=== PATIENT | male | born 1955 | race Caucasian/White ===

== ENCOUNTER 2017-02-26 11:54 | Emergency (ER) | payer OTHER ==
[2017-02-26 12:20] VITALS: BP 149/78
--- NOTE | 2017-02-26 12:44 | UC ---
Upper Extremity HPI - HPI Summary HPI Summary: right ring/middle finger injury today, pinched between a saw horse.steel saw horse and very heavy and crushed the fingers. [ End ] - History of Current Complaint Chief Complaint: UCUpperExtremity Stated Complaint: LEFT HAND INJURY Time Seen by Provider: 02/26/17 12:39 Onset/Duration: Sudden Onset Severity Initially: Moderate Character: Sharp Aggravating Factor(s): Movement Alleviating Factor(s): Nothing, Rest - Allergies/Home Medications Allergies/Adverse Reactions: Allergies Allergy/AdvReac Type Severity Reaction Status Date / Time No Known Allergies Allergy Verified 02/26/17 12:20 Home Medications: Home Medications Atorvastatin* [Lipitor*] 20 mg PO 1700 02/26/17 [History Confirmed 02/26/17] Enalapril TAB* [Vasotec TAB*] 20 mg PO DAILY 02/26/17 [History Confirmed ] Insulin GLARGINE(*) [Lantus(*)] 60 units SUBCUT ONCE 02/26/17 [History Confirmed 02/26/17] Levothyroxine TAB* [Synthroid TAB*] 20 mcg PO DAILY 02/26/17 [History Confirmed 02/26/17] Omeprazole CAP* [Prilosec CAP* 20 MG] 20 mg PO DAILY 02/26/17 [History Confirmed 02/26/17] glipiZIDE TAB* [Glucotrol TAB*] 5 mg PO DAILY 02/26/17 [History Confirmed ] metFORMIN* [Glucophage 1000 MG TAB *] 1,000 mg PO BID 02/26/17 [History Confirmed 02/26/17] PMH/Surg Hx/FS Hx/Imm Hx Previously Healthy: Yes Endocrine History: Diabetes, Dyslipidemia - Surgical History Surgical History: Yes Surgery Procedure, Year, and Place: hernia. left thumb. diverticulits. cataracts. Rotor cuff surgery - Family History Known Family History: Positive: None - Social History Occupation: Employed Full-time Lives: With Family Alcohol Use: Rare Substance Use Type: None Smoking Status (MU): Never Smoked Tobacco Review of Systems Musculoskeletal: Other: - finger pain All Other Systems Reviewed And Are Negative: Yes Physical Exam Triage Information Reviewed: Yes Appearance: Well-Appearing, Well-Nourished Vital Signs: Initial Vital Signs Temp 97.8 F 02/26/17 12:14 Pulse 67 02/26/17 12:14 Resp 14 02/26/17 12:14 BP 149/78 02/26/17 12:14 Pulse Ox 99 02/26/17 12:14 Vital Signs Reviewed: Yes Eye Exam: Normal ENT Exam: Normal Neck exam: Normal Neck: Positive: 1 Respiratory Exam: Normal Cardiovascular Exam: Normal Musculoskeletal Exam: Normal Musculoskeletal: Positive: Strength Intact, ROM Intact, No Edema, Other: - left ring finger and middle finger with tenderness to palpation, proximal 1/3 of finger nail with dark blood under the nail bed. otherwise cap refill < 3 sec, rest of finger ok. no proximal MCP tenderness and FROM. no hand pain otherwise. right hand normal. no wrist pain and FROM . Neurological Exam: Normal Psychological Exam: Normal Skin Exam: Normal Upper Extremity Course/Dx - Differential Dx/Diagnosis Differential Diagnosis/HQI/PQRI: Fracture (Closed), Strain, Sprain Provider Diagnoses: Crush injury to left middle and ring fingers, no fracture Discharge - Discharge Plan Condition: Good Disposition: HOME Patient Education Materials: Crush Injury (ED)
--- NOTE | 2017-02-26 13:17 | RAD ---
Indication: Crush injury to the LEFT third and fourth digits distally. Comparison: No relevant prior exams available on the [facility] for comparison. Technique: AP, lateral, and oblique views of the LEFT third and fourth fingers. Report: Negative for fracture or malalignment at the third or fourth fingers. Osteoarthritis most prominent at the proximal and distal interphalangeal joints mild to moderate in severity. Mild soft tissue swelling most prominent along the radial margin of the third finger from the level of the proximal interphalangeal joint through the tip. No subcutaneous emphysema or conspicuous foreign body evident. IMPRESSION: 1. Soft tissue swelling without evidence for LEFT third or fourth finger fracture or articular malalignment. 2. Osteoarthritis.
--- NOTE | 2017-02-26 13:17 | RAD ---
Indication: Crush injury to the LEFT third and fourth digits distally. Comparison: No relevant prior exams available on the [facility] for comparison. Technique: AP, lateral, and oblique views of the LEFT third and fourth fingers. Report: Negative for fracture or malalignment at the third or fourth fingers. Osteoarthritis most prominent at the proximal and distal interphalangeal joints mild to moderate in severity. Mild soft tissue swelling most prominent along the radial margin of the third finger from the level of the proximal interphalangeal joint through the tip. No subcutaneous emphysema or conspicuous foreign body evident. IMPRESSION: 1. Soft tissue swelling without evidence for LEFT third or fourth finger fracture or articular malalignment. 2. Osteoarthritis.
== END 2017-02-26 13:39 | disposition home or self-care (01) ==
LOC: UCCORT 11:54
DX: S67.193A Crushing injury of left middle finger, initial encounter (principal); S67.195A Crushing injury of left ring finger, initial encounter; W23.0XXA Caught, crushed, jammed, or pinched between moving objects, initial encounter; Y93.9 Activity, unspecified; Y92.9 Unspecified place or not applicable; E11.9 Type 2 diabetes mellitus without complications; E78.5 Hyperlipidemia, unspecified
CPT/HCPCS: 73140; 99211; G0463

== ENCOUNTER 2021-08-17 16:00 | Inpatient (IN) ==
[~2021-08-17 16:00] MED LIST: Rocuronium 50 mg VIAL 10 mg/ml 5 ml VIAL (50 mg) ONE; Succinylcholine 200 mg VIAL 20 mg/ml 10 ml VIAL (200 mg) ONE
[2021-08-17] MEDS ORDERED: Albuterol/Ipratropium NEB.SOL (2.5/0.5 MG) 3 ML NEB.SOLN INH PRN (16:41)
[2021-08-17 16:59] LABS: ABS Lymphocytes 0.4 10^3/ul (1.0-4.8); ABS Monocytes 0.4 10^3/ul (0-0.8); ABS Neutrophils 6.1 10^3/ul (1.5-7.7); Eosinophil % 0.7 %; Hematocrit 42 % (42-52); Hemoglobin 13.9 g/dL (14.0-18.0); Lymphocyte % 5.3 %; Mean Corpuscular HGB Conc 33 g/dL (31-36); Mean Corpuscular Hemoglobin 32 pg (27-31); Mean Corpuscular Volume 95 fL (80-94); Mean Platelet Volume 7.9 fL (7.4-10.4); Nucleated Red Blood Cells % 0.1; Platelet Count 146 10^3/uL (150-450); Red Cell Distribution Width 15 % (10-15); White Blood Count 6.9 10^3/uL (3.5-10.8)
[2021-08-17] MEDS ORDERED: Remdesivir 100 mg Vial 200 MG in NS 0.9% 250 ml 210 ML IV ONE (17:05)
[2021-08-17 17:08] LABS: Magnesium 1.5 mg/dL (1.9-2.7); Phosphorus 2.5 mg/dL (2.5-5.0)
[2021-08-17] MEDS ORDERED: Magnesium Sulf 4 GM/100 ML IV 4,000 MG/100 ML BAG IVPB ONE (17:36)
[2021-08-17] MEDS: methylPREDNISolone SOD 40 mg/ml 1 ml VIAL IV SCH (18:15)
[2021-08-17] MEDS: Furosemide 20 mg/2 ml IV VIAL IV SLOW PU ONE ×2 (18:15→18:33)
[2021-08-17] MEDS ORDERED: Furosemide 20 mg/2 ml IV VIAL IV SLOW PU ONE (18:19)
[2021-08-17] MEDS ORDERED: Furosemide 20 mg/2 ml IV VIAL ONE (18:19)
[2021-08-17] MEDS: Heparin 5000 UNITS/ML 1 mL VIAL SUBCUT SCH (19:31)
[2021-08-18] MEDS: methylPREDNISolone SOD 40 mg/ml 1 ml VIAL IV SCH ×3 (02:26→17:47)
[2021-08-18] MEDS ORDERED: Albuterol HFA INHALER 8 gm MDI INH PRN (03:38)
[2021-08-18 03:50] LABS: ABS Lymphocytes 0.5 10^3/ul (1.0-4.8); ABS Monocytes 0.3 10^3/ul (0-0.8); Hematocrit 39 % (42-52); Hemoglobin 12.8 g/dL (14.0-18.0); Lymphocyte % 10.8 %; Mean Corpuscular HGB Conc 33 g/dL (31-36); Mean Corpuscular Hemoglobin 31 pg (27-31); Mean Corpuscular Volume 95 fL (80-94); Mean Platelet Volume 7.7 fL (7.4-10.4); Platelet Count 146 10^3/uL (150-450); Red Blood Count 4.07 10^6 /uL (4.18-5.48); Red Cell Distribution Width 16 % (10-15); White Blood Count 4.8 10^3/uL (3.5-10.8)
[2021-08-18 03:59] LABS: INR 1.25 (0.86-1.15)
[2021-08-18 04:07] LABS: Albumin 3.4 g/dL (3.2-5.2); Albumin/Globulin Ratio 1.1 (1-3); Calcium 8.6 mg/dL (8.6-10.3); Globulin 3.1 g/dL (2-4); Magnesium 2.1 mg/dL (1.9-2.7); Potassium 4.5 mmol/L (3.5-5.0); Total Bilirubin 0.8 mg/dL (0.2-1.0); Total Protein 6.5 g/dL (6.4-8.9); eGFR CKD-EPI 79.7 (>60)
[2021-08-18] MEDS: Azithromycin 500 mg/250 ml NS 500 MG/250 ML BAG IVPB SCH (05:50)
[2021-08-18] MEDS ORDERED: Furosemide 40 mg/4 ml IV VIAL IV SLOW PU ONE ×2 (05:58→10:00)
[2021-08-18] MEDS: Mometasone/Formoter 200/5 MDI INH SCH ×2 (07:51→17:48)
[2021-08-18] MEDS: OFEV 150 MG PO SCH ×3 (08:55→18:40)
[2021-08-18] MEDS: Aspirin EC 81 mg TAB.EC (enteric coated) PO SCH (08:56)
[2021-08-18] MEDS: cefTRIAXone 1 gm/50 mL NS BAG 1 GM/50 ML BAG IVPB SCH (08:56)
[2021-08-18] MEDS: Heparin 5000 UNITS/ML 1 mL VIAL SUBCUT SCH ×2 (08:56→20:38)
[2021-08-18] MEDS ORDERED: Insulin GLARGINE 100 un/ml 10 ml VIAL SUBCUT SCH (09:00)
[2021-08-18] MEDS ORDERED: Dextrose 50% Syringe 50 ml 25 GM/50 ML SYRINGE IV PUSH PRN (17:27)
[2021-08-18] MEDS: Insulin GLARGINE 100 un/ml 10 ml VIAL SUBCUT SCH (20:38)
[2021-08-18] MEDS: Remdesivir 100 mg Vial 100 MG in NS 0.9% 250 ml 230 ML IV SCH (21:23)
[2021-08-19] MEDS: methylPREDNISolone SOD 40 mg/ml 1 ml VIAL IV SCH ×3 (02:44→17:37)
[2021-08-19 05:04] LABS: ABS Lymphocytes 0.7 10^3/ul (1.0-4.8); ABS Monocytes 0.5 10^3/ul (0-0.8); ABS Neutrophils 6.8 10^3/ul (1.5-7.7); Eosinophil % 0.1 %; Hematocrit 40 % (42-52); Hemoglobin 13.3 g/dL (14.0-18.0); Lymphocyte % 9.2 %; Mean Corpuscular HGB Conc 33 g/dL (31-36); Mean Corpuscular Hemoglobin 32 pg (27-31); Mean Corpuscular Volume 95 fL (80-94); Mean Platelet Volume 7.9 fL (7.4-10.4); Nucleated Red Blood Cells % 0.1; Platelet Count 186 10^3/uL (150-450); Red Blood Count 4.22 10^6 /uL (4.18-5.48); Red Cell Distribution Width 16 % (10-15); White Blood Count 8.1 10^3/uL (3.5-10.8)
[2021-08-19 05:10] LABS: INR 1.26 (0.86-1.15)
[2021-08-19 05:25] LABS: Albumin 3.5 g/dL (3.2-5.2); Albumin/Globulin Ratio 1.1 (1-3); Calcium 8.7 mg/dL (8.6-10.3); Globulin 3.2 g/dL (2-4); Potassium 4.2 mmol/L (3.5-5.0); Total Bilirubin 0.7 mg/dL (0.2-1.0); Total Protein 6.7 g/dL (6.4-8.9); eGFR CKD-EPI 80.6 (>60)
[2021-08-19] MEDS: Azithromycin 500 mg/250 ml NS 500 MG/250 ML BAG IVPB SCH (06:18)
[2021-08-19] MEDS ORDERED: Perflutren Lipid Microsphere 3 ML VIAL ONE (07:42)
[2021-08-19] MEDS: Mometasone/Formoter 200/5 MDI INH SCH ×2 (08:05→21:04)
[2021-08-19] MEDS: Heparin 5000 UNITS/ML 1 mL VIAL SUBCUT SCH ×2 (09:29→20:43)
[2021-08-19] MEDS: Insulin GLARGINE 100 un/ml 10 ml VIAL SUBCUT SCH ×2 (09:29→20:42)
[2021-08-19] MEDS: Aspirin EC 81 mg TAB.EC (enteric coated) PO SCH (09:29)
[2021-08-19] MEDS: OFEV 150 MG PO SCH ×2 (09:31→17:37)
[2021-08-19] MEDS: cefTRIAXone 1 gm/50 mL NS BAG 1 GM/50 ML BAG IVPB SCH (09:58)
[2021-08-19] MEDS ORDERED: Furosemide 40 mg/4 ml IV VIAL IV ONE (11:30)
[2021-08-19] MEDS: Remdesivir 100 mg Vial 100 MG in NS 0.9% 250 ml 230 ML IV SCH (21:20)
[2021-08-20] MEDS: methylPREDNISolone SOD 40 mg/ml 1 ml VIAL IV SCH ×3 (02:11→17:47)
[2021-08-20 04:38] LABS: ABS Basophils 0.1 10^3/ul (0-0.2); ABS Lymphocytes 0.6 10^3/ul (1.0-4.8); ABS Monocytes 0.4 10^3/ul (0-0.8); ABS Neutrophils 8.9 10^3/ul (1.5-7.7); Hematocrit 39 % (42-52); Hemoglobin 13.1 g/dL (14.0-18.0); Lymphocyte % 6.1 %; Mean Corpuscular HGB Conc 33 g/dL (31-36); Mean Corpuscular Hemoglobin 32 pg (27-31); Mean Corpuscular Volume 94 fL (80-94); Mean Platelet Volume 7.8 fL (7.4-10.4); Platelet Count 207 10^3/uL (150-450); Red Blood Count 4.16 10^6 /uL (4.18-5.48); Red Cell Distribution Width 15 % (10-15)
[2021-08-20 04:44] LABS: INR 1.19 (0.86-1.15)
[2021-08-20 04:56] LABS: Albumin 3.5 g/dL (3.2-5.2); Calcium 8.7 mg/dL (8.6-10.3); Globulin 3.4 g/dL (2-4); Potassium 4.6 mmol/L (3.5-5.0); Total Bilirubin 0.6 mg/dL (0.2-1.0); Total Protein 6.9 g/dL (6.4-8.9); eGFR CKD-EPI 83.5 (>60)
[2021-08-20] MEDS: Azithromycin 500 mg/250 ml NS 500 MG/250 ML BAG IVPB SCH (05:56)
[2021-08-20] MEDS: Heparin 5000 UNITS/ML 1 mL VIAL SUBCUT SCH ×2 (07:46→21:43)
[2021-08-20] MEDS: Aspirin EC 81 mg TAB.EC (enteric coated) PO SCH (07:46)
[2021-08-20] MEDS: cefTRIAXone 1 gm/50 mL NS BAG 1 GM/50 ML BAG IVPB SCH (07:50)
[2021-08-20] MEDS: Mometasone/Formoter 200/5 MDI INH SCH ×2 (07:52→20:11)
[2021-08-20] MEDS: Insulin GLARGINE 100 un/ml 10 ml VIAL SUBCUT SCH ×2 (08:03→21:42)
[2021-08-20] MEDS: OFEV 150 MG PO SCH ×2 (09:05→17:53)
[2021-08-20] MEDS ORDERED: Furosemide 40 mg/4 ml IV VIAL IV SLOW PU ONE (10:06)
[2021-08-20] MEDS: Remdesivir 100 mg Vial 100 MG in NS 0.9% 250 ml 230 ML IV SCH (22:12)
[2021-08-21] MEDS: methylPREDNISolone SOD 40 mg/ml 1 ml VIAL IV SCH ×3 (02:49→21:06)
[2021-08-21] MEDS: Azithromycin 500 mg/250 ml NS 500 MG/250 ML BAG IVPB SCH (05:44)
[2021-08-21 07:02] LABS: INR 1.16 (0.86-1.15)
[2021-08-21 07:11] LABS: Albumin 3.7 g/dL (3.2-5.2); Albumin/Globulin Ratio 1.1 (1-3); Calcium 9.3 mg/dL (8.6-10.3); Globulin 3.3 g/dL (2-4); Total Bilirubin 0.6 mg/dL (0.2-1.0); eGFR CKD-EPI 85.6 (>60)
[2021-08-21] MEDS: Heparin 5000 UNITS/ML 1 mL VIAL SUBCUT SCH ×2 (07:39→21:06)
[2021-08-21] MEDS: Aspirin EC 81 mg TAB.EC (enteric coated) PO SCH (07:39)
[2021-08-21] MEDS: Insulin GLARGINE 100 un/ml 10 ml VIAL SUBCUT SCH ×2 (07:48→21:06)
[2021-08-21] MEDS: cefTRIAXone 1 gm/50 mL NS BAG 1 GM/50 ML BAG IVPB SCH (08:16)
[2021-08-21] MEDS: OFEV 150 MG PO SCH (09:16)
[2021-08-21] MEDS ORDERED: Furosemide 40 mg/4 ml IV VIAL IV ONE (10:20)
[2021-08-21] MEDS: Mometasone/Formoter 200/5 MDI INH SCH ×2 (11:31→19:39)
[2021-08-21] MEDS: NINTEDANIB ESYLATE 150 MG PO SCH (17:38)
[2021-08-21] MEDS: Remdesivir 100 mg Vial 100 MG in NS 0.9% 250 ml 230 ML IV SCH (21:07)
[2021-08-22 05:51] LABS: Hematocrit 44 % (42-52); Hemoglobin 14.7 g/dL (14.0-18.0); Mean Corpuscular HGB Conc 34 g/dL (31-36); Mean Corpuscular Hemoglobin 31 pg (27-31); Mean Corpuscular Volume 94 fL (80-94); Mean Platelet Volume 7.7 fL (7.4-10.4); Platelet Count 243 10^3/uL (150-450); Red Blood Count 4.67 10^6 /uL (4.18-5.48); Red Cell Distribution Width 15 % (10-15); White Blood Count 11.2 10^3/uL (3.5-10.8)
[2021-08-22 05:57] LABS: ABS Basophils 0.1 10^3/ul (0-0.2); ABS Lymphocytes 1.4 10^3/ul (1.0-4.8); ABS Monocytes 0.8 10^3/ul (0-0.8); Eosinophil % 0.1 %; Lymphocyte % 12.4 %; Nucleated Red Blood Cells % 0.1
[2021-08-22 06:02] LABS: Albumin 3.6 g/dL (3.2-5.2); Albumin/Globulin Ratio 1.1 (1-3); Calcium 9.3 mg/dL (8.6-10.3); Globulin 3.3 g/dL (2-4); Magnesium 1.8 mg/dL (1.9-2.7); Potassium 4.3 mmol/L (3.5-5.0); Total Bilirubin 0.6 mg/dL (0.2-1.0); Total Protein 6.9 g/dL (6.4-8.9); eGFR CKD-EPI 87.7 (>60)
[2021-08-22 06:07] LABS: INR 1.2 (0.86-1.15)
[2021-08-22] MEDS: Azithromycin 500 mg/250 ml NS 500 MG/250 ML BAG IVPB SCH (06:10)
[2021-08-22] MEDS: Heparin 5000 UNITS/ML 1 mL VIAL SUBCUT SCH ×2 (08:40→20:29)
[2021-08-22] MEDS: Aspirin EC 81 mg TAB.EC (enteric coated) PO SCH (08:41)
[2021-08-22] MEDS: NINTEDANIB ESYLATE 150 MG PO SCH ×2 (08:41→17:31)
[2021-08-22] MEDS: methylPREDNISolone SOD 40 mg/ml 1 ml VIAL IV SCH ×2 (08:41→20:28)
[2021-08-22] MEDS: cefTRIAXone 1 gm/50 mL NS BAG 1 GM/50 ML BAG IVPB SCH (08:42)
[2021-08-22] MEDS: Insulin GLARGINE 100 un/ml 10 ml VIAL SUBCUT SCH ×2 (08:43→20:35)
[2021-08-22] MEDS: Mometasone/Formoter 200/5 MDI INH SCH ×2 (12:22→19:13)
[2021-08-23 04:43] LABS: Hematocrit 43 % (42-52); Hemoglobin 14.4 g/dL (14.0-18.0); Mean Corpuscular HGB Conc 34 g/dL (31-36); Mean Corpuscular Hemoglobin 31 pg (27-31); Mean Corpuscular Volume 93 fL (80-94); Mean Platelet Volume 7.7 fL (7.4-10.4); Platelet Count 272 10^3/uL (150-450); Red Cell Distribution Width 15 % (10-15); White Blood Count 11.7 10^3/uL (3.5-10.8)
[2021-08-23 05:02] LABS: Albumin 3.4 g/dL (3.2-5.2); Albumin/Globulin Ratio 1.1 (1-3); Calcium 8.7 mg/dL (8.6-10.3); Globulin 3.2 g/dL (2-4); Potassium 4.4 mmol/L (3.5-5.0); Total Bilirubin 0.6 mg/dL (0.2-1.0); Total Protein 6.6 g/dL (6.4-8.9); eGFR CKD-EPI 84.5 (>60)
[2021-08-23 05:04] LABS: ABS Lymphocytes 1.2 10^3/ul (1.0-4.8); ABS Monocytes 0.7 10^3/ul (0-0.8); ABS Neutrophils 9.8 10^3/ul (1.5-7.7); Eosinophil % 0.1 %; Lymphocyte % 10.3 %; Nucleated Red Blood Cells % 0.3
[2021-08-23] MEDS: Mometasone/Formoter 200/5 MDI INH SCH ×2 (06:53→19:57)
[2021-08-23] MEDS: NINTEDANIB ESYLATE 150 MG PO SCH ×2 (08:29→16:57)
[2021-08-23] MEDS: Furosemide 40 mg/4 ml IV VIAL IV SCH (08:30)
[2021-08-23] MEDS: methylPREDNISolone SOD 40 mg/ml 1 ml VIAL IV SCH ×2 (08:30→21:06)
[2021-08-23] MEDS: Heparin 5000 UNITS/ML 1 mL VIAL SUBCUT SCH ×2 (08:30→21:08)
[2021-08-23] MEDS: Aspirin EC 81 mg TAB.EC (enteric coated) PO SCH (08:31)
[2021-08-23] MEDS: Insulin GLARGINE 100 un/ml 10 ml VIAL SUBCUT SCH ×2 (08:31→21:08)
[2021-08-23] MEDS: cefTRIAXone 1 gm/50 mL NS BAG 1 GM/50 ML BAG IVPB SCH (08:52)
[2021-08-23] MEDS ORDERED: Furosemide 40 mg/4 ml IV VIAL IV ONE (15:00)
[2021-08-24 05:26] LABS: Hematocrit 45 % (42-52); Hemoglobin 14.9 g/dL (14.0-18.0); Mean Corpuscular HGB Conc 33 g/dL (31-36); Mean Corpuscular Hemoglobin 31 pg (27-31); Mean Corpuscular Volume 95 fL (80-94); Platelet Count 297 10^3/uL (150-450); Red Blood Count 4.78 10^6 /uL (4.18-5.48); Red Cell Distribution Width 15 % (10-15); White Blood Count 12.8 10^3/uL (3.5-10.8)
[2021-08-24 05:31] LABS: ABS Lymphocytes 1.1 10^3/ul (1.0-4.8); ABS Monocytes 0.6 10^3/ul (0-0.8); ABS Neutrophils 11.1 10^3/ul (1.5-7.7); Eosinophil % 0.1 %; Lymphocyte % 8.3 %; Nucleated Red Blood Cells % 0.2
[2021-08-24 05:44] LABS: Albumin 3.5 g/dL (3.2-5.2); Albumin/Globulin Ratio 1.1 (1-3); Calcium 8.8 mg/dL (8.6-10.3); Globulin 3.1 g/dL (2-4); Potassium 4.2 mmol/L (3.5-5.0); Total Bilirubin 0.6 mg/dL (0.2-1.0); Total Protein 6.6 g/dL (6.4-8.9); eGFR CKD-EPI 77.9 (>60)
[2021-08-24] MEDS: Mometasone/Formoter 200/5 MDI INH SCH ×2 (08:23→21:00)
[2021-08-24] MEDS: cefTRIAXone 1 gm/50 mL NS BAG 1 GM/50 ML BAG IVPB SCH (08:36)
[2021-08-24] MEDS: Furosemide 40 mg/4 ml IV VIAL IV SCH (08:37)
[2021-08-24] MEDS: Insulin GLARGINE 100 un/ml 10 ml VIAL SUBCUT SCH ×2 (08:38→21:04)
[2021-08-24] MEDS: methylPREDNISolone SOD 40 mg/ml 1 ml VIAL IV SCH (08:38)
[2021-08-24] MEDS: Heparin 5000 UNITS/ML 1 mL VIAL SUBCUT SCH ×2 (08:38→21:05)
[2021-08-24] MEDS: Aspirin EC 81 mg TAB.EC (enteric coated) PO SCH (08:39)
[2021-08-24] MEDS: NINTEDANIB ESYLATE 150 MG PO SCH ×2 (08:40→17:45)
[2021-08-25 06:00] LABS: ABS Eosinophils 0.1 10^3/ul (0-0.6); ABS Lymphocytes 2.5 10^3/ul (1.0-4.8); ABS Neutrophils 11.1 10^3/ul (1.5-7.7); Eosinophil % 0.4 %; Hematocrit 47 % (42-52); Hemoglobin 15.6 g/dL (14.0-18.0); Lymphocyte % 16.8 %; Mean Corpuscular HGB Conc 33 g/dL (31-36); Mean Corpuscular Hemoglobin 31 pg (27-31); Mean Corpuscular Volume 94 fL (80-94); Mean Platelet Volume 7.7 fL (7.4-10.4); Nucleated Red Blood Cells % 0.2; Platelet Count 312 10^3/uL (150-450); Red Blood Count 5.02 10^6 /uL (4.18-5.48); Red Cell Distribution Width 16 % (10-15); White Blood Count 14.6 10^3/uL (3.5-10.8)
[2021-08-25 06:43] LABS: Albumin 3.7 g/dL (3.2-5.2); Albumin/Globulin Ratio 1.2 (1-3); Potassium 4.3 mmol/L (3.5-5.0); Total Bilirubin 0.6 mg/dL (0.2-1.0); Total Protein 6.7 g/dL (6.4-8.9); eGFR CKD-EPI 79.7 (>60)
[2021-08-25] MEDS: Mometasone/Formoter 200/5 MDI INH SCH ×2 (08:47→19:14)
[2021-08-25] MEDS: Aspirin EC 81 mg TAB.EC (enteric coated) PO SCH (09:10)
[2021-08-25] MEDS: Heparin 5000 UNITS/ML 1 mL VIAL SUBCUT SCH ×2 (09:10→21:57)
[2021-08-25] MEDS: Furosemide 40 mg/4 ml IV VIAL IV SCH (09:10)
[2021-08-25] MEDS: NINTEDANIB ESYLATE 150 MG PO SCH ×2 (09:10→19:41)
[2021-08-25] MEDS: cefTRIAXone 1 gm/50 mL NS BAG 1 GM/50 ML BAG IVPB SCH (09:13)
[2021-08-25] MEDS: Insulin GLARGINE 100 un/ml 10 ml VIAL SUBCUT SCH ×2 (09:13→21:57)
[2021-08-25] MEDS ORDERED: Magnesium Sulfate 2 gm BAG 2 GM/50 ML BAG IVPB ONE (11:55)
[2021-08-26 06:11] LABS: Hematocrit 45 % (42-52); Hemoglobin 14.6 g/dL (14.0-18.0); Mean Corpuscular HGB Conc 33 g/dL (31-36); Mean Corpuscular Hemoglobin 31 pg (27-31); Mean Corpuscular Volume 95 fL (80-94); Mean Platelet Volume 7.5 fL (7.4-10.4); Platelet Count 314 10^3/uL (150-450); Red Blood Count 4.73 10^6 /uL (4.18-5.48); Red Cell Distribution Width 16 % (10-15); White Blood Count 13.2 10^3/uL (3.5-10.8)
[2021-08-26 06:19] LABS: ABS Eosinophils 0.1 10^3/ul (0-0.6); ABS Lymphocytes 1.8 10^3/ul (1.0-4.8); ABS Monocytes 0.9 10^3/ul (0-0.8); ABS Neutrophils 10.3 10^3/ul (1.5-7.7); Eosinophil % 0.8 %; Lymphocyte % 13.5 %
[2021-08-26 06:29] LABS: Calcium 8.8 mg/dL (8.6-10.3); Potassium 4.1 mmol/L (3.5-5.0); eGFR CKD-EPI 67.8 (>60)
[2021-08-26] MEDS: Mometasone/Formoter 200/5 MDI INH SCH (07:25)
[2021-08-26] MEDS ORDERED: Insulin GLARGINE 100 un/ml 10 ml VIAL SUBCUT SCH (09:00)
[2021-08-26] MEDS: NINTEDANIB ESYLATE 150 MG PO SCH (09:53)
[2021-08-26] MEDS: Aspirin EC 81 mg TAB.EC (enteric coated) PO SCH (09:54)
[2021-08-26] MEDS: Heparin 5000 UNITS/ML 1 mL VIAL SUBCUT SCH (09:54)
[2021-08-26 13:58] LABS: Free T3 3.3 pg/mL (2.5-3.9)
[2021-08-26 13:59] LABS: TSH Ultra Thyroid Stim Horm 0.81 mcIU/mL (0.34-5.60)
[2021-08-26 14:00] LABS: Free T4 1.61 ng/dL (0.61-1.12)
[2021-08-26 18:52] VITALS: BP 153/80
== END 2021-08-26 17:30 | disposition home or self-care (01) | DRG 177 ==
LOC: ICU 16:00 → MEDTELE 08-26 01:29
PROVIDERS: ADMIT Internal Medicine; ATTEND Internal Medicine